=== PATIENT | male | born 1995 | race Caucasian/White ===

== ENCOUNTER 2021-04-19 10:31 | Emergency (ER) | payer OTHER ==
[2021-04-19 11:55] LABS: BILIRUBIN 2+ mg/dL (NEGATIVE); BLOOD NEGATIVE Ery/uL (NEGATIVE); CLARITY CLEAR (CLEAR); COLOR YELLOW (YELLOW); GLUCOSE (U) NORMAL (NORMAL); LEUKOCYTES NEGATIVE Leu/uL (NEGATIVE); NITRITE NEGATIVE (NEGATIVE); PROTEIN NEGATIVE (NEGATIVE); SPECIFIC GRAVITY >=1.030 (1.001-1.030)
[2021-04-19 11:55] LABS: BASOPHIL 0.4 % (0-2); EOSINOPHIL 0.5 % (0-5); HCT 38.9 % (42.0-52.0); LYMPHOCYTE 20.4 % (15-48); MCHC 33.4 g/dL (32.0-36.0); MCV 86.6 fL (78.0-100.0); MONOCYTE 7.1 % (0-12); MPV 9.4 fL (6.0-9.5); NEUTROPHIL 71.2 % (41-80); NRBC 0; PLT 258 K/uL (150-400); RBC 4.49 M/uL (4.70-6.00); RDW 13.2 % (11.5-14.0); WBC 10.4 K/uL (4.0-10.5)
[2021-04-19 12:21] LABS: ALBUMIN 3.6 g/dL (3.4-5.0); BILIRUBIN - TOTAL 0.9 mg/dL (0.2-1.0); BUN/CREAT RATIO (CALC) 10.3 RATIO; CREATININE 0.87 mg/dL (0.67-1.17); GLOBULIN (CALCULATION) 4.6 g/dL; POTASSIUM 3.3 mmol/L (3.5-5.1); TOTAL PROTEIN 8.2 g/dL (6.4-8.2)
[2021-04-19] MEDS ORDERED: CIPRO500 MG PO (13:18)
[2021-04-19] MEDS ORDERED: METRONIDAZOLE500 MG PO (13:18)
== END 2021-04-19 14:07 | disposition home or self-care (01) ==
LOC: FER 10:31
PROVIDERS: Internal Medicine
DX: K57.32 Diverticulitis of large intestine without perforation or abscess without bleeding (principal)
CPT/HCPCS: 36415; 80053; 81003; 82150; 83690; 85025; Q9967